=== PATIENT | male | born 1990 | race Caucasian/White ===

== ENCOUNTER 2018-01-13 12:26 | Emergency (ER) | payer SELFPAY ==
[~2018-01-13] VITALS: Ht 177.8 cm; Wt 59.6 kg
[2018-01-13 12:28] VITALS: BP 131/83
[2018-01-13] MEDS ORDERED: CLINDAMYCIN 150 MG CAPSULE ONE (13:12)
[2018-01-13] MEDS ORDERED: CLINDAMYCIN 300 MG CAPSULE ONE (13:12)
[2018-01-13] MEDS ORDERED: CLINDAMYCIN 300 MG CAPSULE PO ONE (13:30)
== END 2018-01-13 14:05 | disposition home or self-care (01) ==
LOC: ED 13:59
DX: K04.7 Periapical abscess without sinus (principal); F17.200 Nicotine dependence, unspecified, uncomplicated
CPT/HCPCS: 41800; 99283